=== PATIENT | female | born 1960 | race Caucasian/White ===

== ENCOUNTER → 2017-01-25 | Outpatient (CLI) | payer MEDICARE, OTHER ==
--- NOTE | ~2017-01-25 | MR18 ---
[facility] A Service of [facility] & [facility] RADIOLOGY TEXT RESULTS PATIENT: TACOS RIVAS LOCATION: [facility] : 62 UNIT #: [id number] AGE: [address]: Nila Reyes MD SEX: F ORDER DR: [id number] [place] [id number] O MR#: [id number] Acc #: [id number] NAME: TACOS RIVAS : 1960 SEX: F STUDY DATE/TIME: 01/25/2017 9:58 UNIT: [facility] ROOM: STUDY DESCRIPTION: MR Brain Wo Contrast Attending Physician: Nila Reyes M.D. Referring Physician: Nila Reyes M.D. Ordering Physician: Nila Reyes M.D. Primary Care Physician: Nila Reyes M.D. MRI CENTER REPORT This report is preliminary unless electronic signature is present. EXAM MRI of the brain without HISTORY Blurred vision, syncope, diabetic with mental challenges. The patient had a syncopal episode at adult daycare 2 weeks ago. Sister could give no further history with respect to visual disturbance. No cancer history. History obtained from sister given the patient's mental challenges. FINDINGS MRI of the brain was performed without contrast using routine 1.5T wide-bore imaging technique. There is no comparison study of the brain. No evidence for a recent ischemic insult on the diffusion series. No Chiari-I malformation. No MRI evidence for intracranial hemorrhage. The major intracranial flow voids are maintained. There is no extraaxial fluid collection. The basilar cisterns are patent. The ventricles are normal in size and configuration. There may be mildly disproportionate volume loss in the posterior fossa; please correlate for any clinical history of long-term antiseizure medication or alcohol usage. There is mucosal thickening in the left maxillary sinus which is moderate with a large mucous retention cyst or polyp and some retained secretions but no definite air-fluid level. Otherwise the paranasal sinuses and mastoid air cells are clear. There is no intracranial mass effect. Minor white matter signal abnormality is seen most confluent in the periventricular white matter nonspecific likely due to small vessel disease and the amount seen is not unexpected in age group. IMPRESSION 1. Left maxillary sinus disease. Moderate amount probably with some retained secretions. No definite air-fluid level. Please correlate [facility] A Service of [facility] & [facility] RADIOLOGY TEXT RESULTS PATIENT: TACOS RIVAS LOCATION: [facility] : 62 UNIT #: [id number] AGE: [address]: Nila Reyes MD SEX: F ORDER DR: for clinical evidence of sinusitis. 2. Mild white matter disease essentially within the range of normal and probably due to small vessel disease. 3. No acute intracranial abnormality suspected. 4. Suspect somewhat disproportionate volume loss in the posterior fossa most commonly seen secondary to long-term alcohol or antiseizure medication usage. Please correlate with clinical history. Dictated by... Kayleigh Waters M.D. THIS IS AN ELECTRONICALLY VERIFIED REPORT Kayleigh Waters M.D. at 01/25/2017 4:38 PM ANTELMO/yonis TD: 01/25/2017 14:06 JOB #: [id number] MRI CENTER REPORT Page 1 of 1
--- NOTE | ~2017-01-25 | US37 ---
[facility] A Service of [facility] & [facility] RADIOLOGY TEXT RESULTS PATIENT: TACOS RIVAS LOCATION: [facility] : 62 UNIT #: [id number] AGE: [address]: Nila Reyes MD SEX: F ORDER DR: [id number] [address] [address] [id number] O MR#: [id number] Acc #: [id number] NAME: TACOS RIVAS : 1960 SEX: F STUDY DATE/TIME: 01/25/2017 8:42 UNIT: [facility] ROOM: STUDY DESCRIPTION: US Carotid W/Doppler Bilateral Attending Physician: Nila Reyes M.D. Referring Physician: Nila Reyes M.D. Ordering Physician: Nila Reyes M.D. Primary Care Physician: Nila Reyes M.D. MEDICAL IMAGING REPORT This report is preliminary unless electronic signature is present. EXAM Carotid duplex scan, 01/25/2017 HISTORY Blurry vision. Syncope. FINDINGS The right common carotid artery has no plaque. There is a small amount of heterogeneous plaque in the right carotid bulb which extends up into the proximal internal and external carotid arteries. The remainder of the internal and external carotid artery are patent with no plaque. Peak systolic velocity in the distal right internal carotid artery is 49 cm/sec with an end-diastolic velocity of 16 cm/sec. The ICA/CCA ratio on the right is 0.59. Peak systolic velocity in the right external carotid artery is 112 cm/sec. The right vertebral artery is patent with antegrade flow. The left common carotid artery has no plaque. There is only a small amount of heterogeneous plaque in the left carotid bulb which extends up into the proximal internal and external carotid arteries. The remainder of the internal and external carotid artery are patent without plaque. Peak systolic velocity in the distal left internal carotid artery is 66 cm/sec with an end-diastolic velocity of 18 cm/sec. The ICA/CCA ratio on the left is 0.7. Peak systolic velocity in the left external carotid artery is 66 cm/sec. The left vertebral artery is patent with antegrade flow. IMPRESSION Small amount of plaque, but no significant stenosis (less than 50%) in the internal and external carotid arteries bilaterally. Patent vertebral arteries bilaterally with antegrade flow. [facility] A Service of [facility] RADIOLOGY TEXT RESULTS PATIENT: TACOS RIVAS LOCATION: [facility] : 62 UNIT #: [id number] AGE: [address]: Nila Reyes MD SEX: F ORDER DR: Dictated by... Deandre Whitt M.D. THIS IS AN ELECTRONICALLY VERIFIED REPORT Deandre Whitt M.D. at 01/26/2017 7:28 AM Donnie TD: 01/25/2017 13:05 JOB #: [id number] MEDICAL IMAGING REPORT Page 1 of 1
== END | disposition home or self-care (01) ==
LOC: SMRI 08:21
DX: H53.8 Other visual disturbances (principal); G47.33 Obstructive sleep apnea (adult) (pediatric); R55 Syncope and collapse; I65.23 Occlusion and stenosis of bilateral carotid arteries; J32.0 Chronic maxillary sinusitis
CPT/HCPCS: 70551; 93880

== ENCOUNTER → 2017-03-08 | Outpatient (CLI) | payer MEDICARE, OTHER ==
--- NOTE | ~2017-03-08 | TH ---
Unit #: [id number] #: [id number] Patient: TACOS RIVAS [id number] [address] [address] [id number] O MR#: [id number] NAME: TACOS RIVAS : 1960 SEX: F STUDY DATE/TIME: 03/09/2017 UNIT: [facility] ROOM: STUDY DESCRIPTION: Cardiolite imaging Attending Physician: Chalo Thurman M.D. Referring Physician: Chalo Thurman M.D. Primary Care Physician: Nila Reyes M.D. CARDIOLOGY REPORT EXAM Cardiolite imaging. Results included in cardiac stress test. Dictated by... Carlos Alberto Vásquez M.D. PJR/gz TD: 03/09/2017 11:01 JOB #: [id number] CARDIOLOGY REPORT Page 1 of 1 X Carlos Alberto Vásquez MD CARDIOLOGY REPORT
--- NOTE | ~2017-03-08 | ST ---
Unit #: [id number] #: [id number] Patient: TACOS RIVAS [id number] [address] [address] [id number] O MR#: [id number] NAME: TACOS RIVAS. : 1960 SEX: F STUDY DATE/TIME: 03/09/2017 UNIT: [facility] ROOM: STUDY DESCRIPTION: Cardiac stress test. Attending Physician: Chalo Thurman M.D. Referring Physician: Chalo Thurman M.D. Primary Care Physician: Nila Reyes M.D. CARDIOLOGY REPORT EXAM Stress ECG, Lexiscan. INDICATION Dyspnea, inability to exercise adequately. SUMMARY The patient received Lexiscan intravenously while at rest as well as technetium 99m Cardiolite 12.0 and 34.8 mCi at rest and stress respectively. Appropriate views were obtained. FINDINGS The rest and stress ECG showed no diagnostic ST shifts. There were no significant dysrhythmias or heart block. Heart rate increased from 73 to 99. Blood pressure increased from 123/71 to 136/77. Perfusion images demonstrate chest wall attenuation artifact, and intestinal artifact, but otherwise there is normal perfusion throughout the myocardium both at rest and at stress. Summed stress scores is zero. Planar images demonstrate no significant patient motion either at rest or stress. There is no significant lung uptake, left ventricular or right ventricular enlargement. Gated perfusion wall motion analysis demonstrates normal wall motion throughout the myocardium with end-diastolic volume 64 ml, ejection fraction greater than 65%. IMPRESSION 1. Myocardial perfusion scan is normal. There is no ischemia or infarction noted. 2. Normal wall motion and normal left ventricular size. 3. Normal stress ECG. Dictated by... Sabra Mckeon/yokasta TD: 03/09/2017 10:56 JOB #: [id number] Unit #: [id number] #: [id number] Patient: TACOS RIVAS CARDIOLOGY REPORT Page 1 of 1 X Carlos Alberto Vásquez MD CARDIOLOGY REPORT
--- NOTE | ~2017-03-08 | HM ---
Unit #: [id number] #: [id number] Patient: TACOS RIVAS [id number] [address] [address] [id number] O MR#: [id number] NAME: TACOS RIVAS : 1960 SEX: F STUDY DATE/TIME: 03/15/2017 UNIT: [facility] ROOM: STUDY DESCRIPTION: Holter monitor Attending Physician: Chalo Thurman M.D. Referring Physician: Chalo Thurman M.D. Primary Care Physician: Nila Reyes M.D. CARDIOLOGY REPORT EXAM Holter monitor. DATE APPLIED March 08, 2017. DATE SCANNED March 14, 2017. ORDERED BY Chalo Thurman M.D. READ BY Carlos Alberto Vásquez M.D. INDICATION Syncope. SUMMARY The patient was monitored for 24 hours. The average heart rate was 84 beats per minute. Minimum heart rate 50 beats per minute at approximately 10 p.m. Maximum heart rate 135 beats per minute at approximately 12:30 p.m. There were no pauses noted. The longest R-R interval occurred during a period of sinus arrhythmia at approximately 10 p.m. A total of 121,023 QRS complexes were analyzed. SUPRAVENTRICULAR ECTOPY: There were 8 isolated beats with no runs. VENTRICULAR ECTOPY: There were 5 isolated beats with no runs. SYMPTOMS: None. PATIENT ACTIVATED EVENTS: None. IMPRESSION Normal Holter monitor with no dysrhythmia or heart block to account for syncope. Dictated by... Carlos Alberto Vásquez M.D. Unit #: [id number] #: [id number] Patient: TACOS RIVAS PJR/db TD: 03/15/2017 11:06 JOB #: [id number] CARDIOLOGY REPORT Page 1 of 1 X Carlos Alberto Vásquez MD HOLTER MONITOR REPORT
== END | disposition home or self-care (01) ==
LOC: CNUC 08:34
DX: R42 Dizziness and giddiness (principal); R55 Syncope and collapse; R07.9 Chest pain, unspecified; I10 Essential (primary) hypertension
CPT/HCPCS: 78452; 93017; 93225; 93226; 93306; A9500; J2785